=== PATIENT | female | born 1960 | race Caucasian/White ===

== ENCOUNTER 2022-05-11 18:54 | Emergency (ER) | payer SELFPAY ==
--- NOTE | ~2022-05-11 | CT_ITS ---
EXAMINATION: CT abdomen pelvis wo con DATE: 05/11/2022 23:44 INDICATION: Left flank pain TECHNIQUE: Computed tomography (CT) of the 03/06/2014 was performed without intravenous contrast. The dose-length product (DLP) was 373.71 mGy-cm. Automated exposure control and iterative reconstruction technique were employed. COMPARISON: 03/06/2014 FINDINGS: The lung bases are clear. The heart size is normal. The gallbladder is surgically absent. T here is mild enlargement of the common bile duct and central intrahepatic ducts which is likely due t o post cholecystectomy state. The liver, spleen, pancreas, and adrenal glands are normal. The kidneys are unremarkable. No stones are identified in the kidneys, ureters, or bladder. There is no hydronep hrosis or hydroureter. There is a small amount of layering hyperattenuating material in the urinary b ladder. No pathologically enlarged abdominal or pelvic lymph nodes are identified. There is no free i ntraperitoneal gas or evidence of bowel obstruction. Colonic diverticulosis is present without eviden ce of diverticulitis. The appendix is normal. There is severe lumbar spondylosis at L5-S1. A small fa t-containing umbilical hernia is noted. IMPRESSION: 1. Small amount of layering hyperattenuating material in the urinary bladder, likely hematoma of uncl ear etiology. Urologic evaluation is recommended. Reviewed, dictated and finalized at location B. IMPRESSION: 1. Small amount of layering hyperattenuating material in the urinary bladder, l ikely hematoma of unclear etiology. Urologic evaluation is recommended.
[2022-05-11 19:18] VITALS: BP 129/77; PULSE 91; RESP 18; TEMP 37.1; O2SAT 99
[2022-05-11 19:43] LABS: Add Urine Microscopic? YES; Appearance Urine Clear (Clear); Bilirubin Urine 1+ (Negative); Blood Urine 3+ (Negative); Color Urine Red (Yellow); Glucose Urine UA Negative (Negative); Ketones Urine Negative (Negative); Leukocyte Esterase Ur 1+ LEU/UL (Negative); Nitrate Urine Negative (Negative); Protein Urine 3+ mg/dL (Negative); Specific Grav Ur 1.015 (1.001-1.035); Urobilinogen Urine 0.2 mg/dL (<2.0); pH Urine 8.5 (5.0-9.0)
[2022-05-11 19:55] LABS: Mucus Urine Rare /lpf; RBC Urine >75 /hpf (0-2); Squamous Epithelial Cell Urine Rare /hpf (Few)
[2022-05-11 22:25] VITALS: BP 117/64; PULSE 80; RESP 18; O2SAT 100
--- NOTE | 2022-05-11 23:20 | ED.FEMALEGU ---
HPI - Female Genitourinary General Chief complaint: Urogenital-Female Stated complaint: HEMATURIA Time Seen by Provider: 05/11/22 22:59 History of Present Illness HPI Narrative: Patient is a 62-year-old female with a history of IBD here for evaluation of left flank pain and hematuria for the past several days. Patient states that she had a fall several days ago, landing on her left side, since then she has been having leg pain and flank pain. She did not strike her back against the floor. Today she developed hematuria with blood clots which prompted her ED evaluation. She denies any dysuria, urgency or burning. No incontinence or retention of bowel or bladder. No fevers or chills. No blood thinner use. Related Data Allergies Allergy/AdvReac Type Severity Reaction Status Date / Time azithromycin Allergy Mild diarrhea Verified 05/11/22 23:29 Penicillins Allergy Mild Hives Verified 05/11/22 23:29 Sulfa (Sulfonamide Allergy Unknown Insomnia Verified 05/11/22 23:29 Antibiotics) Review of Systems Review of Systems: Gen.: Denies fevers or chills Eyes: Denies eye pain or visual change ENT: Denies congestion Respiratory: Denies shortness of breath or cough CV: Denies chest pain or palpitations GI: Denies abdominal pain nausea, emesis or diarrhea reports hematuria. Denies burning, urgency, frequency Musculoskeletal: Reports left flank pain. Neuro: Denies numbness, tingling, weakness or focal weakness Skin: Denies rash Except as documented, all other systems reviewed and negative Exam Narrative: APPEARANCE: Well appearing, no pain in distress, well-nourished. Head: Normocephalic and atraumatic. EYES: PERRLA/EOMI, conjunctivae clear NOSE: No nasal drainage EARS: External ear normal in appearance THROAT: Oropharynx is clear. Mucous membranes are moist. NECK: Supple. No adenopathy, no masses. RESPIRATORY: Airway patent, respirations nonlabored. Clear to auscultation bilaterally, no rales, rhonchi, wheezing. CARDIOVASCULAR: Regular rate and rhythm without murmurs, rubs, or gallops. ABDOMINAL: Normoactive bowel sounds. Soft, nontender, nondistended. No rebound tenderness or guarding. MUSCULOSKELETAL: slight left CVA tenderness. Extremities are warm and well-perfused. Moves all extremities well. No edema. NEURO: Normal speech. No focal neurologic deficits. SKIN: No bruising over flank or rectus sheath. Skin is warm and dry. No rashes. PSYCHIATRIC: Normal affect/mood. Course Vital Signs Vital signs: Vital Signs Temperature 98.7 F 05/11/22 19:18 Pulse Rate 91 05/11/22 19:18 Respiratory Rate 18 05/11/22 19:18 Blood Pressure 129/77 05/11/22 19:18 Pulse Oximetry 99 05/11/22 19:18 Oxygen Delivery Room Air 05/11/22 19:18 Temperature 98.7 F 05/11/22 19:18 Pulse Rate 63 05/12/22 00:52 Respiratory Rate 12 05/12/22 00:52 Blood Pressure 99/52 L 05/12/22 00:52 Pulse Oximetry 99 05/12/22 00:52 Oxygen Delivery Room Air 05/11/22 22:25 MDM - Female Genitourinary MDM Narrative Medical decision making narrative: 62 year old female here for evaluation of flank pain and hematuria for the past several days. She is non-toxic appearing with normal vital signs; she has no bruising over her flank or rectus sheath to suggest hematoma. UA with red urine with large amount of blood and 10-15 WBC and 1+ leuks. H/h normal. Normal kidney function. CT abd pelvis with evidence of colitis (which patient does have history of), but no evidence of kidney stone, hematoma, or pyelonephritis. Shared decision making was used and patient elected to attempt outpatient antibiotics for likely hemorrhagic cystitis and follow up with urology as outpatient for further eval should her symptoms continue. She was given reasons to return to the ED and she voiced understanding. Lab Data Result diagrams: 05/11/22 23:17 05/11/22 23:17 Labs: Lab Results 05/11/22 05/11/22 05/11/22 Range/Units
[2022-05-11 23:23] LABS: Basophils Absolute Auto 0.1 K/mm3 (0.0-0.1); Basophils Percent Auto 0.7 % (0.2-1.2); Eosinophils Percent Auto 0.3 % (0-4.4); Hematocrit 38.9 % (37.0-47.0); Immature Granulocyte Absolute 0.03 K/mm3 (0.00-0.031); Immature Granulocyte Percent A 0.3 % (0-0.5); Lymphocytes Percent Auto 15.2 % (18.3-44.2); Mean Corpuscular HGB Conc 33.4 g/dl (32-36); Mean Corpuscular Hemoglobin 31.1 pg (26-34); Mean Corpuscular Volume 93.1 fl (80-100); Monocytes Absolute Auto 0.7 K/mm3 (0.1-0.6); Monocytes Percent Auto 6.1 % (2.6-8.5); Neutrophils Absolute Auto 9.2 K/mm3 (1.3-6.7); Neutrophils Percent Auto 77.4 % (45.5-73.1); Platelet Count Result 317 k/mm3 (150-375); Red Blood Count 4.18 M/mm3 (4.2-5.4); Red Cell Distribution Width 12.5 % (11.5-14.5); White Blood Count 11.8 K/mm3 (4.5-10.0)
[2022-05-11 23:33] LABS: Alanine Aminotransferase 42 U/L (6-35); Albumin Level 4.6 g/dL (3.5-5.1); Alkaline Phosphatase 90 U/L (38-126); Anion Gap 13 mmol/L (8-16); Aspartate Amino Transferase 38 U/L (14-36); Bilirubin,Total 0.5 mg/dL (0.2-1.3); Blood Urea Nitrogen 14 mg/dL (7-17); Calcium 9.3 mg/dL (8.4-10.2); Carbon Dioxide 26 mmol/L (22-30); Chloride 100 mmol/L (98-107); Estimated CRCL calculation 73 ml/min; Estimated Glomerular Filt Rate > 60; Glucose 110 mg/dL (65-110); Potassium 3.9 mmol/L (3.4-5.0); Sodium 139 mmol/L (137-145)
--- NOTE | 2022-05-11 23:34 | PC.NURSE ---
Pt verbalized unknown allergy to contrast dye. ANGIE Arenas made aware and order changed at this time.
[2022-05-12 00:52] VITALS: BP 99/52; PULSE 63; RESP 12; O2SAT 99
== END 2022-05-12 00:59 | disposition home or self-care (01) ==
PROVIDERS: Physician Assistant; Emergency Provider Emergency Medicine; PCP Physician Assistant Medical
DX: N39.0 Urinary tract infection, site not specified (principal); R93.41 Abnormal radiologic findings on diagnostic imaging of renal pelvis, ureter, or bladder
CPT/HCPCS: 36415; 74176; 80053; 81001; 85025; 87077; 87086; 87088; 87186; 99284

== ENCOUNTER 2022-05-17 14:37 | Emergency (ER) | payer SELFPAY ==
--- NOTE | ~2022-05-17 | CT_ITS ---
EXAMINATION: CT abdomen pelvis wo con DATE: 05/17/2022 21:43 INDICATION: hematoma in bladder? TECHNIQUE: Computed tomography (CT) of the abdomen and pelvis was performed without intravenous contr ast. Automated exposure control and iterative reconstruction technique were employed. The dose-length product was 349.99 mGy-cm. COMPARISON: 05/11/2022. FINDINGS: Lower thorax: Dependent atelectasis Liver: Normal. Biliary/Gallbladder: Gallbladder is absent. Stable extrahepatic bile duct dilation. Pancreas: Ill-defined 2.3 x 1.4 cm hypodensity in the body of the pancreas, without surrounding infla mmatory change. Spleen: Normal. Adrenals:No mass. Kidneys: No mass, stone, or hydronephrosis. GI tract: No small or large bowel dilation. Normal appendix. Diverticulosis without diverticulitis. Mesentery/Peritoneum: No ascites, mass, or free air. Mesenteric edema, surrounding normal-sized lymph nodes with fat halos, less prominent than the prior study. Retroperitoneum: No mass. Atherosclerotic abdominal aortic and/or arterial calcifications. Pelvis: Bladder is partially filled. Minimal residual dependent hyperdensity within the bladder lumen . Mild bladder wall thickening. Soft Tissues: Soft tissues and body wall unremarkable. Bones: No acute osseous finding. IMPRESSION: Ill-defined hypodensity in the pancreatic body, recommend nonemergent, outpatient MRI of the pancreas for further evaluation. Interval near complete resolution of the previously described bladder debris . Improving mesenteric panniculitis. Reviewed, dictated and finalized at location K. IMPRESSION: Ill-defined hypodensity in the pancreatic body, recommend nonemergent, outpatie nt MRI of the pancreas for further evaluation. Interval near complete resolutio n of the previously described bladder debris. Improving mesenteric panniculitis .
--- NOTE | ~2022-05-17 | XR_ITS ---
EXAM: XR wrist RT min 3V DATE: 05/17/2022 20:36 HISTORY: ulnar side right wrist pain, injury;fell 10 days ago . COMPARISON: None available. FINDINGS: Decreased mineralization. No fracture or dislocation. No lytic or blastic lesion. Scattere d degenerative changes. No erosion or periosteal change. Soft tissues within normal limits. IMPRESSION: No acute osseous finding in the right wrist. Reviewed, dictated and finalized at location K.
[2022-05-17 15:11] VITALS: BP 142/58; PULSE 77; RESP 18; TEMP 36.6; O2SAT 99
[2022-05-17 19:03] VITALS: BP 141/70; PULSE 67; RESP 16; TEMP 36.8; O2SAT 99
[2022-05-17 19:04] LABS: Appearance Urine Clear (Clear); Bilirubin Urine Negative (Negative); Blood Urine 2+ (Negative); Color Urine Yellow (Yellow); Glucose Urine UA Negative (Negative); Ketones Urine Negative (Negative); Leukocyte Esterase Ur Negative LEU/UL (Negative); Nitrate Urine Negative (Negative); Protein Urine Negative (Negative); Urobilinogen Urine 0.2 mg/dL (<2.0); pH Urine 6.5 (5.0-9.0)
[2022-05-17 19:18] LABS: Add Urine Microscopic? YES; Mucus Urine Rare /lpf; Squamous Epithelial Cell Urine Rare /hpf (Few); WBC Urine 0-3 /hpf
[2022-05-17 19:51] LABS: Alanine Aminotransferase 34 U/L (6-35); Albumin Level 4.6 g/dL (3.5-5.1); Alkaline Phosphatase 120 U/L (38-126); Anion Gap 9 mmol/L (8-16); Aspartate Amino Transferase 36 U/L (14-36); Bilirubin,Total 0.4 mg/dL (0.2-1.3); Blood Urea Nitrogen 13 mg/dL (7-17); Calcium 9.3 mg/dL (8.4-10.2); Carbon Dioxide 26 mmol/L (22-30); Chloride 102 mmol/L (98-107); Estimated CRCL calculation 64 ml/min; Estimated Glomerular Filt Rate > 60; Glucose 94 mg/dL (65-110); Potassium 3.8 mmol/L (3.4-5.0); Sodium 137 mmol/L (137-145)
[2022-05-17 19:55] LABS: Basophils Absolute Auto 0.1 K/mm3 (0.0-0.1); Basophils Percent Auto 0.7 % (0.2-1.2); Eosinophils Absolute Auto 0.1 K/mm3 (0-0.3); Eosinophils Percent Auto 0.7 % (0-4.4); Hematocrit 39.6 % (37.0-47.0); Hemoglobin 13.3 g/dL (12.0-15.0); Immature Granulocyte Absolute 0.03 K/mm3 (0.00-0.031); Immature Granulocyte Percent A 0.4 % (0-0.5); Lymphocytes Percent Auto 29.3 % (18.3-44.2); Mean Corpuscular HGB Conc 33.6 g/dl (32-36); Mean Corpuscular Volume 92.3 fl (80-100); Mean Platelet Volume 10.7 fl (7.4-10.4); Monocytes Absolute Auto 0.5 K/mm3 (0.1-0.6); Neutrophils Absolute Auto 4.7 K/mm3 (1.3-6.7); Neutrophils Percent Auto 61.9 % (45.5-73.1); Platelet Count Result 355 k/mm3 (150-375); Red Blood Count 4.29 M/mm3 (4.2-5.4); Red Cell Distribution Width 12.3 % (11.5-14.5); White Blood Count 7.5 K/mm3 (4.5-10.0)
[2022-05-17 20:00] VITALS: BP 104/84; PULSE 61; RESP 16; TEMP 36.6; O2SAT 98
[2022-05-17 20:25] LABS: Partial Thromboplastin Time 34.8 SECONDS (22.3-36.8)
--- NOTE | 2022-05-17 20:33 | ED.FEMALEGU ---
HPI - Female Genitourinary General Chief complaint: Urogenital-Female Stated complaint: sent from Dr. Bliss Time Seen by Provider: 05/17/22 17:01 Source: patient Mode of arrival: ambulatory Limitations: no limitations History of Present Illness HPI Narrative: This is a 62-year-old female that presents to the emergency department as directed by her urologist. Reports she was seen here a week ago for hemorrhagic cystitis. She was started on ciprofloxacin for that. She is no longer having any hematuria. She was called back about the read by the radiologist of her CT scan. Told she possibly has a hematoma in the bladder. She was prompted to return for repeat imaging. She also reports she tripped and fell about 10 days ago. Reports she has had some lasting pain in the right wrist. Denies fever or vomiting. Related Data Home Medications Medication Instructions Recorded Confirmed levothyroxine 50 mcg capsule 50 mcg PO DAILY 05/16/22 05/17/22 Allergies Allergy/AdvReac Type Severity Reaction Status Date / Time azithromycin Allergy Mild diarrhea Verified 05/17/22 07:59 Penicillins Allergy Mild Hives Verified 05/17/22 07:59 Sulfa (Sulfonamide Allergy Unknown Insomnia Verified 05/17/22 07:59 Antibiotics) iohexol Allergy Rash Verified 05/17/22 20:05 [From contrast - CT, X-RAY] Review of Systems Review of Systems: CONSTITUTIONAL: Denies fever GASTROINTESTINAL: Reports abdominal pain. Denies nausea, vomiting GENITOURINARY: Denies dysuria or hematuria. All systems reviewed & are unremarkable except as noted in HPI and below PMFSH Past Medical History Medical History Degenerative disc disease at L5-S1 level Familial hematuria Graves disease Smoking Social History Social History (Updated 05/17/22 @ 08:15 by Katherine Epperson MA) Smoking status: Current every day smoker Tobacco type: cigarettes Alcohol intake: never Substance use: never Gender identity (if verbalized by the patient): Female Exam Narrative: GENERAL: Well-appearing, well-nourished, and in no acute distress. HEAD: Normocephalic, atraumatic. EYES: EOMI. ENT: Mucous membranes moist. Oropharynx without tonsillar hypertrophy exudate or other lesions. CHEST: Clear to auscultation. No respiratory distress. No wheezes rales or rhonchi HEART: Regular rate and rhythm. No murmur heard. Normal peripheral pulses. ABDOMEN: Soft, nondistended, normal active bowel sounds. Mild tenderness to palpation of the lower abdomen, without guarding. No CVA tenderness EXTREMITIES: Normal range of motion. No edema or obvious deformity. SKIN: Warm, dry, no rash. NEURO: No focal deficits. Alert and oriented x3. PSYCH: Normal mood and affect Course Vital Signs Vital signs: Vital Signs Temperature 98 F 05/17/22 15:11 Pulse Rate 77 05/17/22 15:11 Respiratory Rate 18 05/17/22 15:11 Blood Pressure 142/58 H 05/17/22 15:11 Pulse Oximetry 99 05/17/22 15:11 Oxygen Delivery Room Air 05/17/22 15:11 Temperature 97.6 F 05/17/22 23:14 Pulse Rate 62 05/17/22 23:14 Respiratory Rate 16 05/17/22 23:14 Blood Pressure 116/70 05/17/22 23:14 Pulse Oximetry 98 05/17/22 23:14 Oxygen Delivery Room Air 05/17/22 15:11 MDM - Female Genitourinary MDM Narrative Medical decision making narrative: Patient presents to the emergency department after being called about an over read of a possible hematoma in her bladder. Patient has been treated with ciprofloxacin for hemorrhagic cystitis. She is afebrile and nontoxic-appearing. Her vitals are stable. CBC metabolic panel without concerning findings. UA without continued evidence of infection. Only shows 3-5 red blood cells. Patient reports she does not have any visible hematuria at this time. CT scan of the abdomen and pelvis shows near complete resolution of previously described bladder debris's. Improving mesenteric panniculitis. Also shows an ill-defined hypodensity in the p
[2022-05-17] MEDS: diphenhydrAMINE HCl INJ 50 MG/ML VIAL IV PUSH (20:53)
[2022-05-17 21:00] VITALS: BP 121/59; PULSE 57; RESP 16; TEMP 36.4; O2SAT 100
[2022-05-17 22:00] VITALS: BP 119/62; PULSE 56; RESP 16; TEMP 36.6; O2SAT 100
[2022-05-17 23:14] VITALS: BP 116/70; PULSE 62; RESP 16; TEMP 36.4; O2SAT 98
== END 2022-05-17 23:16 | disposition home or self-care (01) ==
PROVIDERS: Emergency Medicine; Emergency Provider Emergency Medicine; PCP Physician Assistant Medical
DX: N30.91 Cystitis, unspecified with hematuria (principal); S69.91XA Unspecified injury of right wrist, hand and finger(s), initial encounter; K86.2 Cyst of pancreas; E05.00 Thyrotoxicosis with diffuse goiter without thyrotoxic crisis or storm; F17.210 Nicotine dependence, cigarettes, uncomplicated; W01.0XXA Fall on same level from slipping, tripping and stumbling without subsequent striking against object, initial encounter
CPT/HCPCS: 36415; 73110; 74176; 80053; 81001; 85025; 85610; 85730; 96374; 99284; J1200

== ENCOUNTER → 2022-08-02 08:50 | Outpatient (CLI) | payer SELFPAY ==
--- NOTE | ~2022-08-02 | CT_ITS ---
EXAMINATION: CT abdomen pelvis wo/w con DATE: 08/02/2022 10:08 INDICATION: Gross hematuria TECHNIQUE: Computed tomography (CT) of the abdomen was performed without and with 130 CC Omnipaque 35 0 intravenous contrast. Automated exposure control and iterative reconstruction technique were employ ed. Exam dose: 1164.84 mGy-cm total exam DLP. COMPARISON: 05/17/2022 CT abdomen pelvis 05/11/2022 CT abdomen pelvis FINDINGS: Minimal dependent lower lobe atelectasis. No pulmonary infiltrate or consolidation in the included lower lung zones. Normal heart size. No pericardial or pleural effusion. There is an approximately 1.4 cm indeterminate incompletely circumscribed peripherally hypoattenuatin g lesion at the posterolateral aspect of the hepatic dome (postcontrast series 6 images 24-26). Diffe rential diagnosis includes hemangioma, focal nodular hyperplasia with central scar enhancement,, less likely primary or metastatic liver lesion. Consider hepatic MRI more definitive evaluation. No other hepatic space-occupying mass lesion is detected. Status post cholecystectomy. No bile duct or pancreatic duct dilatation. No pancreatic mass lesion or calcification. Normal splenic size. Normal morphology of the adrenal glands. 6.4 mm anterior mid left renal probable cyst. No renal space occupying mass lesion or filling defect of the renal collecting structures, ureters or urinary bladder is noted. No urinary tract calculus or hydroureteronephrosis. The uterus and adnexal areas are unremarkable. There is atherosclerotic calcification of the abdominal aorta and right renal artery. No abdominal ao rtic aneurysm. No intraperitoneal or retroperitoneal or pelvic mass lesion or adenopathy or ascites is noted. No evidence of appendicitis. There is a prominent amount of feces in the ascending and transverse col on. Diverticulosis of the sigmoid colon; no CT evidence of diverticulitis. No bowel obstruction or in traperitoneal free air. Very small fat-containing umbilical hernia. Mild loss of height and anterior wedging and cupping of the superior vertebral endplate of L1, some s clerosis, consistent with compression fracture, mildly increased and with increased sclerosis since . Severe degenerative disc disease at L5-S1. No suspicious osteolytic or osteoblastic lesions are noted. IMPRESSION: Indeterminate approximately 1.4 cm hepatic mass; consider hepatic MR examination for mor e definitive evaluation Status post cholecystectomy Probable 6.4 mm left renal cyst Diverticulosis of sigmoid colon; no evidence of diverticulitis L1 compression fracture Severe degenerative disease at L5-S1 Reviewed, dictated and finalized at Location A. Reviewed, dictated and finalized at location B. E PATCHER IMPRESSION: Indeterminate approximately 1.4 cm hepatic mass; consider hepatic MR examination for more definitive evaluation Status post cholecystectomy Probable 6.4 mm left renal cyst Diverticulosis of sigmoid colon; no evidence of diverticulitis L1 compression fracture Severe degenerative disease at L5-S1
[2022-08-02 09:40] LABS: Estimated Glomerular Filt Rate > 60
== END ==
PROVIDERS: PCP Physician Assistant Medical; Visit Provider Urology
DX: R31.0 Gross hematuria (principal); R16.0 Hepatomegaly, not elsewhere classified; K57.30 Diverticulosis of large intestine without perforation or abscess without bleeding; M48.56XA Collapsed vertebra, not elsewhere classified, lumbar region, initial encounter for fracture; M51.37 Other intervertebral disc degeneration, lumbosacral region; Z90.49 Acquired absence of other specified parts of digestive tract
CPT/HCPCS: 74178; Q9967

== ENCOUNTER → 2022-09-13 09:22 | Outpatient (CLI) | payer SELFPAY ==
--- NOTE | ~2022-09-13 | MR_ITS ---
EXAMINATION: MR abdomen wo/w con DATE: 09/13/2022 10:48 INDICATION: Liver mass TECHNIQUE: Magnetic resonance imaging (MRI) of the abdomen was performed without and with 14 mL Multi lauryn intravenous contrast. Sequences included coronal T2-weighted SS-FSE, coronal and axial FS 2D-F IESTA, axial STIR FSE, axial T2-weighted SS-FSE, axial T2-weighted FS SS-FSE, axial diffusion-weighte d SE, axial dual-echo T1-weighted FSPGR, and axial and coronal T1-weighted LAVA. Postcontrast axial T 1-weighted LAVA images were obtained in a time course. Postcontrast coronal T1-weighted LAVA images w ere obtained. COMPARISON: CT dated 08/12/2022 FINDINGS: Heart size is normal. No pericardial or pleural effusion. 1.4 cm T2 hyperintense lesion which demonst rates minimal amount of enhancement which appears to arise from one side of the nodule branching more centrally which progressively increases in area, still occupying less than half of the area of the l esion on the 10 minute imaging. The degree of enhancement remains isointense to the aorta on all sequ ences. No areas of the lesion demonstrating washout. The temporal enhancement pattern and prominent T 2 echogenicity. There will be most consistent with a hemangioma. No other hepatic lesions identified. Cholecystectomy clips the gallbladder fossa. Pancreas, spleen, bilateral adrenal glands and right ki dney are normal. 6 mm nonenhancing lesion in the left kidney which is unable to distinguish on the no ncontrast imaging likely representing a complex proteinaceous/hemorrhagic cyst. No pathologically enl arged abdominal lymphadenopathy. Visualized bowels are unremarkable with no obstruction. Severe spond ylosis at L5-S1. Otherwise mild lumbar and lower thoracic spondylosis. No abnormally enhancing bone l esions. IMPRESSION: 1. 1.4 cm lesion in the posterior dome of the right hepatic lobe which demonstrates enhancement patte rn and kinetics most consistent with a hemangioma. Reviewed, dictated and finalized at location A. F INTERPRETER IMPRESSION: 1. 1.4 cm lesion in the posterior dome of the right hepatic lobe which demonstr ates enhancement pattern and kinetics most consistent with a hemangioma.
== END ==
PROVIDERS: PCP Physician Assistant Medical; Visit Provider Physician Assistant Medical
DX: R16.0 Hepatomegaly, not elsewhere classified (principal)
CPT/HCPCS: 74183; A9577

== ENCOUNTER 2024-06-05 00:45 | Day surgery (SDC) | payer MEDICARE, SELFPAY ==
[2024-05-22 10:23] VITALS: BMI 28.4
[2024-06-05 07:06] VITALS: BP 117/65; PULSE 83; RESP 18; TEMP 36.2; O2SAT 97; BMI 27.0
[2024-06-05] MEDS: LACTATED RINGERS 1,000 ML 150 ML IV CONT (07:14)
--- NOTE | 2024-06-05 08:17 | WPDANESEPPF ---
Anes - Initial Pre Proc Eval Procedure: Operation Date: 06/05/24 08:30 Proposed Procedures p Colonoscopy - Cuco Carrasco MD Date/Time: 06/05/24 08:17 Surgeon: Cuco Carrasco MD Pre Op Diagnosis: hx of colon polyps Patient Data Age: 64 Gender: F Height: 1.57 m Weight: 67 kg Last Vital Signs Temp 97.1 F L 06/05/24 07:06 Pulse 83 06/05/24 07:06 Resp 18 06/05/24 07:06 BP 117/65 06/05/24 07:06 Pulse Ox 97 06/05/24 07:06 O2 Del Method Room Air 06/05/24 07:06 Allergies Allergy/AdvReac Type Severity Reaction Status Date / Time azithromycin Allergy Mild diarrhea Verified 06/05/24 07:04 Penicillins Allergy Mild Hives Verified 06/05/24 07:04 Sulfa (Sulfonamide Allergy Unknown Insomnia Verified 06/05/24 07:04 Antibiotics) iohexol Allergy Rash Verified 06/05/24 07:04 [From contrast - CT, X-RAY] Flu shot AdvReac [place] ill Uncoded 06/05/24 07:04 for days Home Medications Medication Instructions Recorded Confirmed Type levothyroxine 50 mcg capsule 50 mcg PO DAILY 05/16/22 06/05/24 History multivitamin 1 tablet PO DAILY 09/15/22 06/05/24 History calcium 600 mg (as 1 tablet PO BID #30 tabs 03/20/24 06/05/24 Rx carbonate)-vitamin D3 20 mcg (800 unit) tablet mecobalamin (vitamin B12) 500 mcg 500 mcg PO DAILY #30 tabs 03/20/24 06/05/24 Rx chewable tablet cholecalciferol (vitamin D3) 125 125 mcg PO DAILY 05/23/24 06/05/24 History mcg (5,000 unit) capsule Patient hx anesthesia problems: none Family hx anesthesia problems: none Results Review: All pre-operative results and documents have been reviewed as part of the pre-operative evaluation. 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 Graves disease Nicotine addiction Smoking Thyroid disease Surgical History Surgical History (Updated 04/23/24 @ 13:38 by Fany Gibbs CMA) History of cholecystectomy Family History Family History Mother Cancer Father Cancer Social History Social History (Updated 04/23/24 @ 13:30 by Cathy Alvarado) Social History: Patient decline SDOH 04/23/24 Smoking packs per day: 0.5 Smoking cigarettes per day: 10.0 Years smoked: 50 Smoking pack-years: 25.00 Smoking status: Current every day smoker Tobacco type: cigarettes Alcohol intake: never Substance use: never Substance use type: does not use Living arrangements: with family Occupation/Education: retired Gender identity (if verbalized by the patient): Female Spiritual care concerns: No Anes - Eval Final PreProcedure Day of Procedure 06/05/24 08:17 Patient weight: normal Heart: regular rate and rhythm Lungs: clear to auscultation Airway: Mallampati scale class II Neurological: alert and oriented Last oral intake: >/= 8 hours ASA classification: II Emergent: no Anesthetic plan: proceed Anesthesia type and monitoring: general GIVS and standard monitoring Results Review: All pre-operative results and documents have been reviewed as part of the pre-operative evaluation. Informed Consent: The patient's anesthetic plan and its attendant risks and benefits were discussed with the patient/family/POA. Questions were solicited and answers provided to the satisfaction of the patient/family/POA.
--- NOTE | 2024-06-05 08:57 | P.HP_ITS ---
H&P: HPI History of Present Illness Date/Time: 06/05/24 08:57 Chief Complaint: history of colon polyps Narrative: The patient's last colonoscopy was more than 15 years ago. Here for surveillance colonoscopy. 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) History of cholecystectomy Family History Family History Mother Cancer Father Cancer Social History Social History (Updated 04/23/24 @ 13:30 by Cathy Alvarado) Social History: Patient decline SDMS 04/23/24 Smoking packs per day: 0.5 Smoking cigarettes per day: 10.0 Years smoked: 50 Smoking pack-years: 25.00 Smoking status: Current every day smoker Tobacco type: cigarettes Alcohol intake: never Substance use: never Substance use type: does not use Living arrangements: with family Occupation/Education: retired Gender identity (if verbalized by the patient): Female Spiritual care concerns: No Meds Home Medications and Allergies Home Medications Medication Instructions Recorded Confirmed Type levothyroxine 50 mcg capsule 50 mcg PO DAILY 05/16/22 06/05/24 History multivitamin 1 tablet PO DAILY 09/15/22 06/05/24 History calcium 600 mg (as 1 tablet PO BID #30 tabs 03/20/24 06/05/24 Rx carbonate)-vitamin D3 20 mcg (800 unit) tablet mecobalamin (vitamin B12) 500 mcg 500 mcg PO DAILY #30 tabs 03/20/24 06/05/24 Rx chewable tablet cholecalciferol (vitamin D3) 125 125 mcg PO DAILY 05/23/24 06/05/24 History mcg (5,000 unit) capsule Allergies Allergy/AdvReac Type Severity Reaction Status Date / Time azithromycin Allergy Mild diarrhea Verified 06/05/24 07:04 Penicillins Allergy Mild Hives Verified 06/05/24 07:04 Sulfa (Sulfonamide Allergy Unknown Insomnia Verified 06/05/24 07:04 Antibiotics) iohexol Allergy Rash Verified 06/05/24 07:04 [From contrast - CT, X-RAY] Flu shot AdvReac [place] ill Uncoded 06/05/24 07:04 for days Vital Signs Vital Signs - 24 hr 06/05/24 07:06 Temperature 97.1 F L Pulse Rate 83 Respiratory Rate 18 Blood Pressure 117/65 Pulse Oximetry 97 Oxygen Delivery Room Air Assessment and Plan Assessment and plan (1) History of colonic polyps: Code(s): Z86.0100 - Personal history of colon polyps, unspecified Status: Acute Plan Patient deemed a good candidate for colonoscopy. Will proceed.
[2024-06-05 09:23] VITALS: BP 85/44; PULSE 61; RESP 20; O2SAT 99
[2024-06-05 09:33] VITALS: BP 93/56; PULSE 60; RESP 24; O2SAT 99
[2024-06-05 09:43] VITALS: BP 129/68; PULSE 63; RESP 19; O2SAT 100
== END 2024-06-05 10:05 | disposition home or self-care (01) ==
PROVIDERS: PCP Physician Assistant Medical; Visit Provider Internal Medicine Gastroenterology
PROC: 0DJD8ZZ Inspection of Lower Intestinal Tract, Via Natural or Artificial Opening Endoscopic (ICD-10-PCS; CPT 45378; principal; 2024-06-05 08:30)
DX: Z12.11 Encounter for screening for malignant neoplasm of colon (principal); D12.0 Benign neoplasm of cecum; D12.8 Benign neoplasm of rectum; K57.30 Diverticulosis of large intestine without perforation or abscess without bleeding; M51.379 Other intervertebral disc degeneration, lumbosacral region without mention of lumbar back pain or lower extremity pain; E05.00 Thyrotoxicosis with diffuse goiter without thyrotoxic crisis or storm; F17.210 Nicotine dependence, cigarettes, uncomplicated; Z98.890 Other specified postprocedural states; Z90.49 Acquired absence of other specified parts of digestive tract; Z80.9 Family history of malignant neoplasm, unspecified
CPT/HCPCS: 45385; 88305; J2003; J2371; J2704; J7120

== ENCOUNTER 2024-06-26 10:15 | Outpatient (RCR) | payer MEDICARE, SELFPAY ==
--- NOTE | 2024-04-07 11:08 | OTOPEVAL1 ---
Assessment and note entered by Rodrick Diop, BEN/Jeovany, CHT OT Evaluation Information 04/07/24 Diagnosis Right wrist pain ICD-10 Condition Codes (OT) M25.531 Subjective Information Patient reports experiencing right wrist, hand, and elbow pain that has been going on for years . She reports pain, numbness, and tingling. She points to the ulnar side of the wrist and hand as the site of these symptoms. 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 She reports increased symptoms when sitting and reading a book. She reports her pain in the arm can get up to 10/10 when she's doing housework . She wears a wrist brace during ADLs and sometimes she wears it to sleep. Reported Pain Level Pain Score 7/10 (R) arm Assessment OT Clinical Summary Patient referred to OT with dx of right wrist pain . She presents with signs and symptoms of ulnar nerve compression at the elbow and wrist. 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 Skilled OT indicated for HEP instruction, HEP progression, therapeutic exercise, modalities, manual therapy, and education to facilitate reduced nerve compression, reduced pain, improved strength, and improved functional use for ADLs. Plan of Care Interventions Therapeutic Exercise,Manual Therapy,Hot Pack/Cold Pack,Paraffin OT Services Indicated Yes Treatment Frequency and 1x/week for 6 visits Duration These treatments will address the objective and functional deficits as defined above. The patient will be advanced safely and appropriately in order for the patient to progress towards his/her prior level of function. Additional exercises will be introduced and as well as a comprehensive home exercise program upon discharge, if needed, ?to ensure carryover of functional gains achieved in the clinic. This treatment plan has been reviewed and agreement upon by the patient.
--- NOTE | 2024-04-07 11:08 | OPREHPOC ---
Outpatient Therapy Plan of Care This is a Multidisciplinary Plan of Care that may contain components documented by all disciplines (PT, OT, and ST.) OT Problem 1 OT Problem #1 Knowledge Deficit OT Goal 1 Goal 1. Patient to be independent with instructed materials. Target Visit 6 OT Problem 2 OT Problem #2 Pain OT Goal 1 Goal 1. Patient to report reduced (R) UE pain during ADLs/housework to 3/10 or less. Target Visit 6 OT Problem 3 OT Problem #3 Impaired Strength OT Goal 1 Goal Increase (R) UE strength: 1. elbow flexion and extension to 4/5 2. wrist flexion and extension to 4/5 3. sld teacher to 35 lbs. 4. intrinsics (finger abduction/adduction) to 4/5 Target Visit 6
--- NOTE | 2024-04-07 13:31 | PTOPEVAL1 ---
Assessment and note entered by Birgit Colon, PT Evaluation Information Assessment Status Evaluation Diagnosis M54.2, M54.50, G89.29, R26.81, M25.531 Onset Apr 2021 Subjective Information Pt reports falling approx 2 years ago, started feeling the back pain which got worse over time. She recalled that she was slammed by the door and was pushed side to side and then fell forward towards the sink bending her back. Insurance issues has limited her ability to address the back pain at that time. Recently, pain wakes her up at night. Reports feeling a burning sensation from middle of back down to her tail bone, states she uses back brace to reduce pain. Performing standing housework, walking longer distances and prolonged sitting is difficult at this time. Her personal goal for therapy is to fix the back and be able to perform activities normally without pain. Reported Pain Level Pain Score 8,8,7: Self Report Pain Score 7: Self Report Additional Pain Score Comments reports pain is mainly in the spine, occasionally feels a twinge on R hip. Pt is having difficulty describing the pain, repeatedly states all I know is that it just hurts all the time Assessment PT Clinical Summary Pt is a 64 yo female who reports to therapy with increased pain from mid thoracic area towards the lowback and R SI area. X-rays revealed she has degenerative disc disease of her lumbar spine, worst at L5-S1 with L1 compression fracture with chronic low back pain which began when she fell in Apr 2022. Demos significant limitation to ROM and strength, radicular symptoms along the spine which pt described as burning , postural deficits, balance impairments and reduced ambulation tolerance which increases her risk for falls and or injuries as well as decreased independent performance of ADLs. She will greatly benefit from skilled PT to acquire knowledge on proper body mechanics and appropriate exercises, improve trunk and BLE muscle flexibility, develop core strength and lumbar stability and improve gait mechanics. Plan of Care Interventions Check Out for Orthotic/Pr,Electrical Stimulation, Gait Training,Hot Pack/Cold Pack,Manual Therapy, Neuro Re-education,Patient/Caregiver Education, Therapeutic Activities,Therapeutic Exercise, Ultrasound Other Interventions IASTM, Taping PT Services Indicated Yes Treatment Frequency and 2x/wk x 10 visits Duration These treatments will address the objective and functional deficits as defined above. The patient will be advanced safely and appropriately in order for the patient to progress towards his/her prior level of function. Additional exercises will be introduced and as well as a comprehensive home exercise program upon discharge, if needed, ?to ensure carryover of functional gains achieved in the clinic. This treatment plan has been reviewed and agreement upon by the patient.
--- NOTE | 2024-04-07 16:02 | PTOPEVAL1 ---
Assessment and note entered by Birgit Colon, PT Evaluation Information Assessment Status Evaluation Diagnosis M54.2, M54.50, G89.29, R26.89 ICD-10 Condition Codes (PT) M54.6,Pain in low back M54.50,M54.15,Difficulty Walking R26.2,R26.9,Weakness R53.1 Onset Apr 2022 Subjective Information Pt reports falling approx 2 years ago, started feeling the back pain which got worse over time. She recalled that she was slammed by the door and was pushed side to side and then fell forward towards the sink bending her back. Insurance issues has limited her ability to address the back pain at that time. Recently, pain wakes her up at night. Reports feeling a burning sensation from middle of back down to her tail bone, states she uses back brace to reduce pain. Performing standing housework, walking longer distances and prolonged sitting is difficult at this time. Her personal goal for therapy is to fix the back and be able to perform activities normally without pain. Reported Pain Level Pain Score 8,8,7: Self Report Pain Score 7: Self Report Additional Pain Score Comments reports pain is mainly in the spine, occasionally feels a twinge on R hip. Pt is having difficulty describing the pain, repeatedly states all I know is that it just hurts all the time Assessment PT Clinical Summary Pt is a 64 yo female who reports to therapy with increased pain from mid thoracic area towards the lowback and R SI area. X-rays revealed that she has degenerative disc disease of her lumbar spine, worst at L5-S1 with L1 compression fracture with chronic low back pain which began when she fell in Apr 2022. Demos significant limitation to ROM and strength, radicular symptoms along the spine which pt described as burning , postural deficits, balance impairments and reduced ambulation tolerance which increases her risk for falls and or injuries as well as decreased indep performance of ADLs. She will greatly benefit from skilled PT to acquire knowledge on proper body mechanics and appropriate exercises, improve trunk and BLE muscle flexibility, develop core strength and lumbar stability and improve gait mechanics. Plan of Care Interventions Check Out for Orthotic/Pr,Electrical Stimulation, Gait Training,Hot Pack/Cold Pack,Manual Therapy, Neuro Re-education,Patient/Caregiver Education, Therapeutic Activities,Therapeutic Exercise, Ultrasound Other Interventions IASTM, Taping PT Services Indicated Yes Treatment Frequency and 2x/wk x 20 visits Duration These treatments will address the objective and functional deficits as defined above. The patient will be advanced safely and appropriately in order for the patient to progress towards his/her prior level of function. Additional exercises will be introduced and as well as a comprehensive home exercise program upon discharge, if needed, ?to ensure carryover of functional gains achieved in the clinic. This treatment plan has been reviewed and agreement upon by the patient.
--- NOTE | 2024-05-13 09:35 | OTOPPROG ---
Assessment and note entered by Rodrick Diop, BEN/Jeovany, CHT OT Progress Update 05/13/24 Diagnosis Right wrist pain Subjective Information Patient reports feeling no change in her right UE symptoms, stating they may be a little bit worse. She continues to report constant tingling in the right hand, today she is pointing to digits II-V. She reports also experiencing symptoms on the dorsal side of her hand. Due to the more global symptoms, therapy is shifting toward working more proximally at the shoulder for nerve compression. Cervical spine x-ray from February was negative. She reports she has been more cognizant of her mechanics when reading, using pillows to support her arms and bringing the iPad up so her head isn' t forward/flexed for a prolonged period. She continues to wear a wrist immobilizer at night and sometimes during the day. Assessment OT Clinical Summary Patient referred to OT with dx of right wrist pain . Treatments have been focused on treating symptoms of ulnar nerve compression. Re-assessment today reveals relatively no change in her symptoms. Today she is experiencing more global symptoms, reporting paresthesia on the palmar and dorsal sides of her right hand. She continues to have nerve pain with nerve tensioning tests. Shifting treatment to focus more on postural work, stretching, and strengthening. Continued skilled OT indicated for HEP instruction, HEP progression, therapeutic exercise, modalities, manual therapy, and education to facilitate reduced nerve compression, reduced pain, improved strength, and improved functional use for ADLs. May consider nerve conduction study if therapeutic intervention does not help reduce symptoms over the next month . Plan of Care Interventions Therapeutic Exercise,Manual Therapy,Therapeutic Activities,Hot Pack/Cold Pack,Paraffin OT Services Indicated Yes Treatment Frequency and 1-2x/week for 8 visits Duration These treatments will address the objective and functional deficits as defined above. The patient will be advanced safely and appropriately in order for the patient to progress towards his/her prior level of function. Additional exercises will be introduced and as well as a comprehensive home exercise program upon discharge, if needed, ?to ensure carryover of functional gains achieved in the clinic. This treatment plan has been reviewed and agreement upon by the patient.
--- NOTE | 2024-05-13 09:36 | OPREHPOC ---
Outpatient Therapy Plan of Care This is a Multidisciplinary Plan of Care that may contain components documented by all disciplines (PT, OT, and ST.) PT Problem 1 PT Problem #1 Knowledge Deficit PT Goal 1 Goal / Goal Update Pt will demo HEPs for lumbar stabilization, core strength and balance Target Visit 10 PT Problem 2 PT Problem #2 Pain PT Goal 1 Goal / Goal Update Pt will report 2-3/10 at worst or during standing and or ambulation tasks. Target Visit 10 PT Problem 3 PT Problem #3 Impaired Range of Motion PT Goal 1 Goal / Goal Update Pt will demo 20 deg increase in all the measured ROM of thoracolumbar joint. Target Visit 10 PT Problem 4 PT Problem #4 Impaired Gait PT Goal 1 Goal / Goal Update 1. Pt will perform 1 leg standing for upto 20 sec each to improve safety with ambulation. 2. Pt will demo improved heel strike and without posturing, compensatory leaning when ambulating 300ft during 2-min walk test indicating normalized gait pattern and improved walking tolerance. Target Visit 10 PT Problem 5 PT Problem #5 Impaired Functional Mobil PT Goal 1 Goal / Goal Update Pt will demo a score of 10% or less of the Modified Oswestry Low Back Pain Disability Questionnaire indicating minimal disability. Target Visit 10 OT Problem 1 OT Problem #1 Knowledge Deficit OT Goal 1 Goal / Goal Update 1. Patient to be independent with instructed materials. ---OT POC UPDATE 05/13/24--- 1. Met, however she continues to require cues for mechanics, continue goal Target Visit 14 OT Problem 2 OT Problem #2 Pain OT Goal 1 Goal / Goal Update 1. Patient to report reduced (R) UE pain during ADLs/housework to 3/10 or less. ---OT POC UPDATE 05/13/24--- 1. Not met, continue to address and treat (R) UE pain Target Visit 14 OT Problem 3 OT Problem #3 Impaired Strength OT Goal 1 Goal / Goal Update Increase (R) UE strength: 1. elbow flexion and extension to 4/5 2. wrist flexion and extension to 4/5 3. emt/dispatcher to 35 lbs. 4. intrinsics (finger abduction/adduction) to 4/5 ---OT POC UPDATE 05/13/24--- Goals 1-2 not assessed this date due to time limitations, continue strengthening Goal 3 is progressing, pt's emt/dispatcher improved from 15 to 29 lbs. Goal 4 not assessed this date due to time limitations, continue strengthening Target Visit 14
--- NOTE | 2024-05-16 14:25 | PTOPEVAL1 ---
Assessment and note entered by Birgit Colon, PT Re-Eval Information Assessment Status Progress Diagnosis M54.2, M54.50, G89.29, R26.89 ICD-10 Condition Codes (PT) M54.6,Pain in low back M54.50,M54.15,Difficulty Walking R26.2,R26.9,Weakness R53.1 Onset Apr 2021 Subjective Information Pt reports continue to feel stiffness and discomfort to upper thoracic area down to waistline misha when she first get up from sleep/nap . mill washer increases discomfort to the back, bending and standing for prolonged periods of time. lifting weighted objects also increased pain. States she feels some relief since starting therapy and has not been needing to wear the brace as often and as long as she used to in the beginning; however she does not feel completely healed . she Denies taking medications at this time. Assessment PT Clinical Summary Pt. received a total of 9 sessions of Physical Therapy and demos gains in strength and standing, walking tolerance. Reports reduction in pain levels at this time, however continues to feel discomfort with certain movements and required cues for exercises. She is agreeable and will benefit from continued skilled PT at this time to improve postural awareness and improve carryover of back protection techniques, proper body mechanics and relaxation techniques to help improve quality of life and painfree functional mobility. Plan of Care Interventions Check Out for Orthotic/Pr,Electrical Stimulation, Gait Training,Hot Pack/Cold Pack,Manual Therapy, Neuro Re-education,Patient/Caregiver Education, Therapeutic Activities,Therapeutic Exercise, Ultrasound Other Interventions IASTM, Taping PT Services Indicated Yes Treatment Frequency and 1-2x/wk x 10 visits Duration These treatments will address the objective and functional deficits as defined above. The patient will be advanced safely and appropriately in order for the patient to progress towards his/her prior level of function. Additional exercises will be introduced and as well as a comprehensive home exercise program upon discharge, if needed, ?to ensure carryover of functional gains achieved in the clinic. This treatment plan has been reviewed and agreement upon by the patient.
--- NOTE | 2024-05-27 08:39 | PCOTNOTE ---
Patient did not show up for scheduled appointment this date. Called and patient stated she had oral surgery and was unable to come. Patient was reminded of upcoming appointment on the .
--- NOTE | 2024-06-26 11:45 | OTOPDC ---
Assessment and note entered by Rodrick Diop, YONATANR/Jeovany, NERY OT D/C Summary 06/26/24 Assessment Status Discharge Diagnosis Right wrist pain ICD-10 Condition Codes (OT) M25.531 Subjective Information Patient again reporting no change in her right UE symptoms. She continues to report tingling in the right hand, today she is pointing to the palmar and dorsal aspects of digits II-V. She does again state it's been going on for years . No symptoms on the left side. She reports she has been using better body mechanics when reading. She continues to wear her wrist brace when doing house work. Due to patient's reports of global symptoms vs specific distal nerve, therapy shifted toward working more proximally at the shoulder and working on posture. Reported Pain Level Pain Score 6: Self Report Assessment OT Clinical Summary Patient referred to OT with dx of right wrist pain . Her symptoms also include constant tingling on the palmar and dorsal surface of the hand, consistent with C7-T1 compression. She demonstrates difficulty holding pressure with manual muscle testing of the triceps, unable to perform a static hold, the elbow/triceps are very jerky . The left triceps are 5/5 and have no jerk and perform a strong static hold. Distally she does demonstrate weakness in the intrinsic muscles of the hand, also indicative of CY-T1 compression . After 2 months of OT focused on distal nerves ( ulnar, radial, and median) as well as working on the shoulder for improved posture, she unfortunately has not seen any changes regarding the pain and paresthesia in the hand. 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 At this time it is recommended that she is followed by PT for a cervical/thoracic spine evaluation and treatment plan. D/C OT. Thank you for this referral. Plan of Care OT Services Indicated No
--- NOTE | 2024-06-26 15:37 | PTOPPROG ---
Assessment and note entered by Birgit Colon, PT Re-Eval Information Assessment Status Progress Diagnosis M54.2, M54.50, G89.29, R26.89 ICD-10 Condition Codes (PT) M54.6,Pain in low back M54.50,M54.15,Difficulty Walking R26.2,R26.9,Weakness R53.1 Onset Apr 2021 Subjective Information Pt reports feeling only temporary relief for pain and continue to feel discomfort and bad days although she noted it is much less frequent these days. Assessment PT Clinical Summary Pt has received a total of 17 treatment sessions for lumbar stabilization and to address pain. Cont to demo slow progress, however she reports she noticed improvement to her strength and pain levels or pain occurrence. Presents with 15% in Modified Oswestry Scale indicating minimal disability. Pt reports she feels like she needs to continue performing therapy to help improve her balance and reduce risk for falls. She will benefit from additional skilled PT sessions to further address her pain levels and update POC to focus on balance and stability. Plan of Care Interventions Electrical Stimulation,Gait Training,Hot Pack/Cold Pack,Manual Therapy,Neuro Re-education,Patient/ Caregiver Educati,Therapeutic Activities, Therapeutic Exercise,Ultrasound,Other Other Interventions IASTM, Taping PT Services Indicated Yes Treatment Frequency and 1-2x/wk x 8 visits Duration These treatments will address the objective and functional deficits as defined above. The patient will be advanced safely and appropriately in order for the patient to progress towards his/her prior level of function. Additional exercises will be introduced and as well as a comprehensive home exercise program upon discharge, if needed, ?to ensure carryover of functional gains achieved in the clinic. This treatment plan has been reviewed and agreement upon by the patient.
== END 2024-07-06 23:59 | disposition home or self-care (01) ==
LOC: ANHHIOT 10:15
PROVIDERS: PCP Physician Assistant Medical; Visit Provider Physician Assistant Medical
DX: M54.2 Cervicalgia (principal); M25.531 Pain in right wrist; M54.50 Low back pain, unspecified; G89.29 Other chronic pain; R26.81 Unsteadiness on feet
CPT/HCPCS: 97014; 97018; 97032; 97035; 97110; 97112; 97140; 97161; 97166; 97530; 97750; G0283

== ENCOUNTER 2024-10-13 10:30 | Outpatient (RCR) | payer MEDICARE, SELFPAY ==
--- NOTE | 2024-08-07 17:28 | PTOPEVAL1 ---
Assessment and note entered by Vianney Mccullough, PT Evaluation Information Assessment Status Evaluation Diagnosis dorsalgia ICD-10 Condition Codes (PT) Cervicalgia M54.2,Pain in low back M54.50,Weakness R53.1 Other ICD-10 Condition Codes ( pain in arm unspecified, PT) Subjective Information Pt states has been to pain management and provided anti-inflammatories 2x daily by mouth almost a month and this has helped but not fixed the issue. States touching the neck in the left/midline is tender. Has follow up Aug 14. Reports right hand has improved wiht the anti- inflammatories. States has been wearing the brace less. Pt reports is usually at the end of the day last night felt like back was burning. States has one of the TENS units stimulators and this helps. Pt states will sit quite a bit between chores Denies N/T accept in the back of the neck and that has only been the last few days Reported Pain Level Pain Score 3,5: Self Report Assessment PT Clinical Summary Pt presents with complaints of neck and back pain. She is known to therapist as has been to this location previously by PT and OT. Pt has since seen pain management and anti-inflammatories have been helpful for her RUE most, but feels is also improving other areas, though the pain isn't gone. Demonstrates decreased cervical active ROM and lumbar active ROM. Cervical passive ROM is greater than active without restriction or pain in rotation and lateral flexion. Pt demonstrates multiple areas of weakness in lumbopelvic core and leg length discrepancy. Will benefit from therapy to address these deficits, improve pain and meet maximal functional independence. Plan of Care Interventions Electrical Stimulation,Hot Pack/Cold Pack,Manual Therapy,Neuro Re-education,Patient/Caregiver Education,Therapeutic Activities,Therapeutic Exercise,Self-Care/Home Management,Ultrasound PT Services Indicated Yes Treatment Frequency and 2x weekly x 16 visits Duration These treatments will address the objective and functional deficits as defined above. The patient will be advanced safely and appropriately in order for the patient to progress towards his/her prior level of function. Additional exercises will be introduced and as well as a comprehensive home exercise program upon discharge, if needed, ?to ensure carryover of functional gains achieved in the clinic. This treatment plan has been reviewed and agreement upon by the patient.
--- NOTE | 2024-08-07 17:28 | OPREHPOC ---
Outpatient Therapy Plan of Care This is a Multidisciplinary Plan of Care that may contain components documented by all disciplines (PT, OT, and ST.) PT Problem 1 PT Problem #1 Knowledge Deficit PT Goal 1 Goal / Goal Update Knowledge: Pt will be independent in HEP Pt will verbalize understanding of diagnosis and prognosis Target Visit 8 PT Problem 2 PT Problem #2 Pain PT Goal 1 Goal / Goal Update Pt will report lowest pain rating at 0/10 to show improvement in overall discomfort Target Visit 8 PT Goal 2 Goal / Goal Update Pt will report greatest pain level at 5/10 or less to improve ADLs and activities Target Visit 16 PT Problem 3 PT Problem #3 Impaired Range of Motion PT Goal 1 Goal / Goal Update Pt will demonstrate increased lumbar and cervical range of motion in flexion by 10 degrees each Target Visit 8 PT Goal 2 Goal / Goal Update Pt will demonstrate lumbar and cervical active ROM within 75% of normative values in all planes for improved function Target Visit 16 PT Problem 4 PT Problem #4 Impaired Sensation PT Goal 1 Goal / Goal Update Pt will demo core strength of 3+/5 of the TRAM to improve lumbopelvic stability Target Visit 8 PT Goal 2 Goal / Goal Update Pt will demo 4/5 or greater strength in BLE to improve knee stability and kinematics with activities Target Visit 16
--- NOTE | 2024-08-26 12:39 | PCPTNOTE ---
Pt presented 45 minutes early for her scheduled appointment. When she was informed of this, she disagreed with the scheduled time. As another patient was at that time, pt was unable to be seen and opted to cancel instead of wait or leave and come back for appointment.
--- NOTE | 2024-09-03 10:47 | PCPTNOTE ---
Patient called & cancelled scheduled appointment 09/01/2024 due to weather conditions
--- NOTE | 2024-09-15 11:30 | PCPTNOTE ---
Patient called & cancelled scheduled appointment this date due to her car not starting.
--- NOTE | 2024-10-13 11:08 | PTOPDC ---
Assessment and note entered by Vianney Mccullough, PT Evaluation Information Assessment Status Discharge Diagnosis dorsalgia ICD-10 Condition Codes (PT) Cervicalgia M54.2,Pain in low back M54.50,Weakness R53.1 Other ICD-10 Condition Codes ( pain in arm unspecified, PT) Subjective Information Reports when she was taking anti-inflammatories that they eased her back sooner than her wrist. Has a pain management appt next month that pt thinks is going to try to convince her to do an epi-dural and she doesn't want to do this. Pt states still takes a lot of brakes. States started taking Tumeric and Ada root and feels this may be helpful Wrist has been bothering her a lot. Home exercises are going good, gets them done every day usually in the morning. Self perceived improvement: 20% Reported Pain Level Pain Score 3,2,3: Self Report Assessment PT Clinical Summary Pt has attended 8 sessions for her neck, back, and wrist pain. She recently had to reduce frequency due to financial issues. She is discharging today due to same financial issues. She has shown some improvement in her objective measures but also shows improvement in her pain responses with greatest pain being 4/10 overall. Pt has met and partially met multiple goals however we are discharging per patient request. Plan of Care PT Services Indicated No
== END 2024-10-13 11:15 | disposition home or self-care (01) ==
LOC: ANHHIPT 10:30
PROVIDERS: PCP Physician Assistant Medical; Visit Provider Physician Assistant Medical
DX: M54.2 Cervicalgia (principal); M79.603 Pain in arm, unspecified; R26.89 Other abnormalities of gait and mobility; M54.9 Dorsalgia, unspecified
CPT/HCPCS: 97014; 97110; 97112; 97140; 97162; G0283

== ENCOUNTER 2024-12-30 09:41 | Outpatient (CLI) | payer MEDICARE, SELFPAY ==
--- NOTE | ~2024-12-30 | XR_ITS ---
Right Hand Technique: PA and lateral views were obtained. Clinical History: Degenerative disease Findings: No acute fracture or dislocation is seen. Osseous alignment is anatomic. There are minimal degenerative changes of the DIP joints and first CMC joint. Soft tissues are unremarkable. Impression: Minimal degenerative changes, as above. Reviewed, dictated and finalized at location . Impression: Minimal degenerative changes, as above.
--- NOTE | ~2024-12-30 | XR_ITS ---
Left Hand Technique: PA and lateral views were obtained. Clinical History: Degenerative disease Findings: No acute fracture or dislocation is seen. Osseous alignment is anatomic. There are minimal degenerative changes of the DIP joints. Soft tissues are unremarkable. Impression: Minimal degenerative change of the DIP joints. Reviewed, dictated and finalized at location . Impression: Minimal degenerative change of the DIP joints.
--- NOTE | ~2024-12-30 | XR_ITS ---
Right foot Technique: AP and lateral views were obtained. Clinical History: Degenerative disease Findings: No acute fracture or dislocation is seen. Osseous alignment is anatomic. Joint spaces are p reserved without erosive or degenerative change. Soft tissues are unremarkable. Impression: Unremarkable right foot radiographs. Reviewed, dictated and finalized at location . Impression: Unremarkable right foot radiographs.
--- NOTE | ~2024-12-30 | XR_ITS ---
AP and oblique views of the SI joints CLINICAL HISTORY: degenerative disc disease FINDINGS: There is minimal degenerative change of both SI joints. No fracture or dislocation seen. Vi sualized hip joints are intact. Soft tissues are unremarkable. IMPRESSION: Minimal degenerative change of both SI joints. Reviewed, dictated and finalized at location .
--- NOTE | ~2024-12-30 | XR_ITS ---
Left foot Technique: AP and lateral views were obtained. Clinical History: General disease Findings: No acute fracture or dislocation is seen. Osseous alignment is anatomic. Joint spaces are p reserved without erosive or degenerative change. Plantar calcaneal spur present. Soft tissues are unr emarkable. Impression: Plantar calcaneal spur, otherwise unremarkable exam. Reviewed, dictated and finalized at location . Impression: Plantar calcaneal spur, otherwise unremarkable exam.
--- NOTE | ~2024-12-30 | XR_ITS ---
Lumbosacral Spine: AP, oblique, and lateral views Clinical History: Degenerative disc disease COMPARISON: 03/20/2024 Findings: The normal lordotic curve is maintained. No fracture or sublocation seen. There is advanced degenerative disc narrowing at L5-S1, similar to prior exam. There is moderate to advanced facet art hropathy, especially from L3 through S1. The sacroiliac joints are normally outlined. Impression: Degenerative spondylosis, as above, similar to prior exam. Reviewed, dictated and finalized at location M. Impression: Degenerative spondylosis, as above, similar to prior exam.
== END 2024-12-30 09:42 | disposition home or self-care (01) ==
PROVIDERS: PCP Physician Assistant Medical; Visit Provider Internal Medicine
DX: M47.817 Spondylosis without myelopathy or radiculopathy, lumbosacral region (principal); M25.569 Pain in unspecified knee; M51.360 Other intervertebral disc degeneration, lumbar region with discogenic back pain only; M77.32 Calcaneal spur, left foot; M19.042 Primary osteoarthritis, left hand; M19.041 Primary osteoarthritis, right hand
CPT/HCPCS: 72110; 72202; 73120; 73620